=== PATIENT | female | born 1960 | race Two or more races ===

== ENCOUNTER 2022-03-02 04:05 | Day surgery (SDC) | payer OTHER ==
[2022-01-27 14:11] VITALS: BMI 26.8
[2022-03-02] MEDS ORDERED: PROPOFOL 20 ML ONE ×6 (08:47→10:25)
[2022-03-02] MEDS ORDERED: SUCCINYLCHOLINE CHLORIDE 200 MG/10 ML SYRINGE ONE (08:47)
[2022-03-02] MEDS ORDERED: BUPIVACAINE HCL/PF 0.5% (5MG/ML) 10 ML VIAL ONE ×2 (08:51→09:13)
[2022-03-02] MEDS ORDERED: BUPIVACAINE LIPOSOME/PF (EXPAREL) 266 MG/20 ML VIAL ONE (08:51)
[2022-03-02] MEDS ORDERED: LIDOCAINE HCL 1%, 10 MG/ML (20ML VIAL) ONE (09:13)
[2022-03-02] MEDS ORDERED: MIDAZOLAM HCL 2 MG/2 ML SINGLE DOSE VIAL ONE ×3 (09:21→10:13)
[2022-03-02] MEDS ORDERED: DEXMEDETOMIDINE HCL 200 MCG/2 ML IVPB ONE (09:43)
[2022-03-02] MEDS ORDERED: KETAMINE HCL 200 MG/20 ML VIAL ONE (10:28)
[2022-03-02] MEDS ORDERED: CLINDAMYCIN PHOSPHATE 600 MG/4 ML VIAL IVPB ONE (10:40)
[2022-03-02] MEDS ORDERED: LACTATED RINGERS SOLUTION 1,000 ML IV SCH (13:00)
[2022-03-02 16:13] VITALS: RESP 20
[2022-03-02 17:56] VITALS: BP 140/80; PULSE 78; TEMP 97
== END 2022-03-02 17:05 | disposition home or self-care (01) ==
LOC: JASU-SURG 04:05
PROVIDERS: ATTEND Podiatrist Foot & Ankle Surgery
PROC: 0LQW0ZZ Repair Left Foot Tendon, Open Approach (ICD-10-PCS; 2022-03-02)
PROC: 0LQW0ZZ Repair Left Foot Tendon, Open Approach (ICD-10-PCS; 2022-03-02)
PROC: 0QSM0ZZ Reposition Left Tarsal, Open Approach (ICD-10-PCS; principal; 2022-03-02 10:00)
DX: M21.42 Flat foot [pes planus] (acquired), left foot (principal); M67.972 Unspecified disorder of synovium and tendon, left ankle and foot
CPT/HCPCS: 28200; 28300; C1713; 73630-TC-LT; 76000-TC-FY; 94760